=== PATIENT | female | born 1980 | race Caucasian/White ===

== ENCOUNTER 2019-12-15 18:03 | Emergency (ER) | payer BC ==
--- NOTE | 2019-12-15 19:00 | EDM.PDOC ---
ED HPI GENERAL MEDICAL PROBLEM - General Chief Complaint: Respiratory Problem Stated Complaint: CHEST PAIN/COUGH Time Seen by Provider: 12/15/19 18:42 Source of Information: Reports: Patient History Limitations: Reports: No Limitations - History of Present Illness INITIAL COMMENTS - FREE TEXT/NARRATIVE: Patient is a 38-year-old female who presents with complaints of a nonproductive cough, fever, body aches, nasal congestion. She complains of chest tightness and discomfort with deep breathing. States it is painful to cough. She also complains of intermittent bilateral ear pain she was diagnosed with pneumonia at the walk-in clinic on November 28. She was treated with azithromycin and Augmentin which she completed the course of approximately 1 week ago. States the symptoms did improve, however she did have a recurrence of cough 2 to 3 days ago. Fever, body aches, and chills developed today. States that a fever at home this morning was 102.0. She is currently afebrile in the emergency department. She did have an influenza vaccination this year. Treatments PUBLIC HEALTH ENGINEER: Reports: Acetaminophen, Other (see below) Other Treatments PUBLIC HEALTH ENGINEER: dayquil Generalized Pain Score (Numeric/FACES): 6 - Related Data Allergies Allergy/AdvReac Type Severity Reaction Status Date / Time erythromycin base Allergy Hives Verified 12/15/19 18:26 Home Meds: Home Meds Albuterol [Ventolin HFA] 2 puff .XX Q4H PRN #1 inhaler 12/15/19 [Rx] Codeine/Promethazine [Phenergan with Codeine] 5 ml PO Q4HR PRN #100 ml 12/15/19 [Rx] Doxycycline [Vibramycin] 100 mg PO BID #20 tab 12/15/19 [Rx] Fluticasone Propionate [Flonase Allergy Relief] 1 applicful NASBOTH DAILY [History] PARoxetine [Paxil] 20 mg PO DAILY 12/15/19 [History] Past Medical History Respiratory History: Reports: Asthma Other Gastrointestinal History: spleenectomy 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 ED EXAM, GENERAL - Physical Exam Exam: See Below Exam Limited By: No Limitations General Appearance: Alert, WD/WN, No Apparent Distress Ears: Normal External Exam, Normal Canal, Hearing Grossly Normal, Normal TMs Throat/Mouth: Normal Inspection, Normal Lips, Normal Teeth, Normal Gums, Normal Oropharynx, Normal Voice, No Airway Compromise Neck: Normal Inspection, Supple, Non-Tender, Full Range of Motion Respiratory/Chest: No Respiratory Distress, Lungs Clear, Normal Breath Sounds, No Accessory Muscle Use, Chest Non-Tender. No: Respiratory Distress, Decreased Breath Sounds, Crackles, Rhonchi, Wheezing, Accessory Muscle Use Cardiovascular: Normal Peripheral Pulses, Regular Rate, Rhythm, No Edema, No Gallop, No JVD, No Murmur, No Rub Neurological: Alert, Oriented, CN II-XII Intact, Normal Cognition, Normal Gait, Normal Reflexes, No Motor/Sensory Deficits Psychiatric: Normal Affect, Normal Mood Skin Exam: Warm, Dry, Intact, Normal Color, No Rash Course - Vital Signs Last Recorded V/S: Last Vital Signs Temp 99.8 F 12/15/19 20:37 Pulse 106 H 12/15/19 20:37 Resp 18 12/15/19 20:37 BP 129/92 H 12/15/19 20:37 Pulse Ox 99 12/15/19 20:37 - Orders/Labs/Meds Orders: Active Orders 24 hr Category Date Time Status RT Aerosol Therapy [RC] ASDIRECTED Care 12/15/19 19:38 Active Chest 2V [CR] Stat Exams 12/15/19 18:59 Taken Isolation [COMM] Routine Oth 12/15/19 19:00 Ordered Meds: Medications Discontinued Medications Generic Name Dose Route Start Last Admin Trade Name Freq PRN Reason Stop Dose Admin Albuterol/Ipratropium 3 ml 12/15/19 19:37 12/15/19 19:55 Duoneb 3.0-0.5 Mg/3 Ml NEB 12/15/19 19:38 3 ml ONETIME ONE Administration Ibuprofen 600 mg 12/15/19 19:37 12/15/19 19:42 Motrin PO 12/15/19 19:38 600 mg ONETIME ONE Administration - Re-Assessments/Exams Free Text/Narrative Re-Assessment/Exam: I have ordered a two-view chest x-ray as well as influenza screen. Influenza screen was negative. Chest x-ray does show a infiltrate in the right middle lobe. Patient is unsure which side her pneumonia was on previously. We did attempt to contact [facility] to have the images pushed to us, however they were unable to locate the chest x-ray. Based on patient's symptoms and the chest x- ray, we will treat this as an pneumonia. She is already had a course of azithromycin and Augmentin, therefore will treat with doxycycline twice daily for 10 days. She did verbalize relief of the chest tightness with a DuoNeb treatment. I will prescribe a albuterol inhaler to be used as needed for shortness of breath. I will also send a prescription for Phenergan with codeine for cough. Discharge instructions as documented. Departure - Departure Time of Disposition: 20:18 Disposition: Home, Self-Care 01 Condition: Fair Clinical Impression: Pneumonia Qualifiers: Pneumonia type: due to unspecified organism Laterality: right Lung location: middle lobe of lung Qualified Code(s): J18.9 - Pneumonia, unspecified organism - Discharge Information *PRESCRIPTION DRUG MONITORING PROGRAM REVIEWED*: No *COPY OF PRESCRIPTION DRUG MONITORING REPORT IN PATIENT ELIZABETH: No Prescriptions: Codeine/Promethazine [Phenergan with Codeine] 5 ml PO Q4HR PRN #100 ml PRN Reason: Cough Albuterol [Ventolin HFA] 2 puff .XX Q4H PRN #1 inhaler PRN Reason: Shortness Of Breath Doxycycline [Vibramycin] 100 mg PO BID #20 tab Instructions: Community-Acquired Pneumonia, Adult Referrals: Maggie Camilo MD [Primary Care Provider] - Forms: ED Department Discharge Additional Instructions: You were seen in the emergency department today with complaints of cough, fever , body aches, and headache. Your work-up included a chest x-ray, as well as an influenza swab. Your chest x-ray did show a right middle lobe pneumonia. A prescription for doxycycline, an albuterol inhaler, and Phenergan with codeine cough syrup has been sent to [place] [facility]. Take these medications as prescribed. Recommend that you take [id number] Tylenol or ibuprofen as needed for any fever or discomfort. Continue to monitor your symptoms, if you should experience any new or worsening symptoms or fail to improve over the course of the next few days as expected, we would recommend that you follow-up with your primary care provider or return to the ER as needed. Sepsis Event Note - Evaluation Sepsis Screening Result: Possible Sepsis Risk - Focused Exam Vital Signs: Vital Signs Temp Pulse Resp BP Pulse Ox Pulse Ox 12/15/19 20:37 99.8 F 106 H 18 129/92 H 99 12/15/19 19:58 97 12/15/19 18:15 98.8 F 99 124/86 96 Date Exam was Performed: 12/15/19 Time Exam was Performed: 22:24 - My Orders Last 24 Hours: My Active Orders 12/15/19 18:59 Chest 2V [CR] Stat 12/15/19 19:00 Isolation [COMM] Routine 12/15/19 19:38 RT Aerosol Therapy [RC] ASDIRECTED - Assessment/Plan Last 24 Hours: My Active Orders 12/15/19 18:59 Chest 2V [CR] Stat 12/15/19 19:00 Isolation [COMM] Routine 12/15/19 19:38 RT Aerosol Therapy [RC] ASDIRECTED
[2019-12-15] MEDS ORDERED: Ibuprofen 600 MG Tab PO ONE (19:37)
[2019-12-15] MEDS ORDERED: Albuterol/Ipratropium 3.0-0.5 MG/3 ML Neb Soln NEB ONE (19:37)
--- NOTE | 2019-12-16 14:05 | CR ---
Chest: 2 views of the chest were obtained. Comparison: No prior chest x-ray. Heart size and mediastinum are within normal limits. No acute parenchymal change is appreciated. Minimal scoliosis is noted within the spine. No acute bony abnormality is appreciated. Impression: 1. Nothing acute is appreciated on 2 view chest x-ray. Diagnostic code #2 This report was dictated in MDT
== END 2019-12-15 20:36 | disposition home or self-care (01) ==
LOC: JD.ED 18:03
DX: J18.9 Pneumonia, unspecified organism (principal); J45.909 Unspecified asthma, uncomplicated; Z88.1 Allergy status to other antibiotic agents; Z79.899 Other long term (current) drug therapy
CPT/HCPCS: 71046; 87804; 94640; 99285; A9270; J7620-GY

== ENCOUNTER 2021-02-11 09:18 | Emergency (ER) | payer BC ==
--- NOTE | 2021-02-11 10:01 | EDM.PDOC ---
ED HPI GENERAL MEDICAL PROBLEM - General Chief Complaint: Lower Extremity Injury/Pain Stated Complaint: LEFT FOOT PAIN Time Seen by Provider: 02/11/21 09:35 Source of Information: Reports: Patient History Limitations: Reports: No Limitations - History of Present Illness INITIAL COMMENTS - FREE TEXT/NARRATIVE: 40-year-old female presents the emergency department today with complaints of left foot pain and burning status post discectomy in [place] by Dr. Hdz on January 02, 2021. She states immediately after the surgery she developed left foot pain which has progressively gotten worse. She states that Dr. Johnson is aware of this pain and she did follow-up with him about 2 weeks ago. He told her she was needing to have an MRI however she is waiting on insurance approval for this. She states she has been calling him daily as he needs to speak with the insurance company. Apparently this has not been authorized yet. She does have Percocet at home which she states does help with the pain however she does not want to take any pain medication. Presents the ER today in obvious pain and crying. Denies any recent fever, chills, nausea, vomiting or diarrhea. Denies any dizziness, blurred vision, double vision or headache. 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 ED EXAM, GENERAL - Physical Exam Exam: See Below Exam Limited By: No Limitations General Appearance: Alert, WD/WN, No Apparent Distress Ears: Normal External Exam, Hearing Grossly Normal Nose: Normal Inspection Throat/Mouth: Normal Inspection, Normal Lips, Normal Voice, No Airway Compromise Head: Atraumatic, Normocephalic Neck: Normal Inspection Respiratory/Chest: No Respiratory Distress, No Accessory Muscle Use Cardiovascular: Normal Peripheral Pulses, Regular Rate, Rhythm Peripheral Pulses: 2+: Radial (L), Radial (R) GI/Abdominal: No Distention (Female) Exam: Deferred Rectal (Female) Exam: Deferred Back Exam: Normal Inspection Extremities: Normal Inspection, Normal Range of Motion. No: Non-Tender (Shearing burning pain noted to left foot at rest and with any palpation.) Neurological: Alert, Oriented, Normal Cognition Psychiatric: Anxious, Tearful Skin Exam: Warm, Dry, Intact, Normal Color, No Rash Lymphatic: No Adenopathy Course - Vital Signs Text/Narrative:: Patient presents with left foot pain and burning status post discectomy on January [id number]. She reports that immediately after surgery she developed left foot pain, however this is progressively gotten worse with pain and burning. Patient states it is painful to touch as she will not even let me attempt to palpate pedal pulses. Patient is able to wiggle her digits, CMS is positive and she has good range of motion noted however she states the pain is severe. She did see her neurologist about 2 weeks ago and he was made aware of this pain however he states that she will need to have an MRI and she is waiting on her insurance to authorize this. She states she did take a Percocet yesterday and this did give her some pain relief however she does not want to rely on pain medications. She is requesting to have an MRI today. I did phone the MRI department and there is no appointments available today, and the next available appointment is February [id number]. After discussion, the patient has elected to be discharged from the emergency department and she states she is likely just going to go to the emergency department in [place]. Last Recorded V/S: Last Vital Signs Temp 97.3 F 02/11/21 09:24 Pulse 106 H 02/11/21 09:24 Resp 16 02/11/21 09:24 BP 133/86 02/11/21 09:31 Pulse Ox 97 02/11/21 09:24 Departure - Departure Time of Disposition: 10:01 Disposition: Home, Self-Care 01 Condition: Good Clinical Impression: Left foot pain - Discharge Information Instructions: Pain Medicine Instructions, [id number] Referrals: Maggie Camilo DIRECT MARKETING REPRESENTATIVE [Primary Care Provider] - Forms: ED Department Discharge Additional Instructions: You were seen in the ED today with complaints of left foot pain after having back surgery. You requested to have a MRI however there is no spots available today. Next available MRI appointment is February 17, 2021. Follow up with your Neurosurgeon, Dr. Hdz. Sepsis Event Note (ED) - Evaluation Sepsis Screening Result: No Definite Risk - Focused Exam Vital Signs: Vital Signs Temp Pulse Resp BP Pulse Ox 02/11/21 09:31 133/86 02/11/21 09:24 97.3 F 106 H 16 142/131 H 97
== END 2021-02-11 10:05 | disposition home or self-care (01) ==
LOC: JD.ED 09:18
DX: M79.672 Pain in left foot (principal); J45.909 Unspecified asthma, uncomplicated; Z87.891 Personal history of nicotine dependence; Z79.899 Other long term (current) drug therapy; Z88.1 Allergy status to other antibiotic agents
CPT/HCPCS: 99282; 99283

== ENCOUNTER 2021-02-11 15:09 | Emergency (ER) | payer BC ==
[2021-02-11] MEDS ORDERED: HYDROmorphone 1 MG/ML Syringe IM ONE (16:25)
--- NOTE | 2021-02-11 17:03 | EDM.PDOC ---
ED HPI GENERAL MEDICAL PROBLEM - General Chief Complaint: Lower Extremity Injury/Pain Stated Complaint: LEFT FOOT PAIN Time Seen by Provider: 02/11/21 16:18 Source of Information: Reports: Patient, RN Notes Reviewed History Limitations: Reports: No Limitations - History of Present Illness INITIAL COMMENTS - FREE TEXT/NARRATIVE: Patient is a 40-year-old female who presents to the ER for the evaluation of left-sided foot/leg pain. Patient recently had back surgery performed by Dr. Hdz in [facility]. Patient has been having excruciating pain to her left leg, she was seen in this ER earlier this morning, but left without her discharge paperwork, she states that she has taken her Percocet at home, 2 tablets at around 10 AM, another tablet at around noon, and 2 more at 2 PM. She notes that nothing seems to be helping much. Uses her oxycodone 5/325 mg. She states there is a fire-like pain running down from her left lower back, to the lateral portion of her left thigh, that wraps to the front of her knee, down into her toes. Patient notes she is awaiting insurance approval for MRI. Notes she has been placed on gabapentin in the past with no relief as well as steroids with no relief. No worsening neurological symptoms like urinary incontinence or fecal incontinence, or any sort of saddle anesthesia. Patient denies any other sick-like symptoms, fever/chills, cough/shortness of breath, nausea/vomiting/diarrhea. Treatments OPTIC FIBRE DRAWER: Reports: Other (see below) Other Treatments OPTIC FIBRE DRAWER: oxycodone Left Feet Pain Score (Numeric/FACES): 10 - Related Data Allergies Allergy/AdvReac Type Severity Reaction Status Date / Time erythromycin base Allergy Hives Verified 02/11/21 09:48 Home Meds: Home Meds Albuterol [Ventolin HFA] 2 puff .XX Q4H PRN #1 inhaler 12/15/19 [Rx] Fluticasone Propionate [Flonase Allergy Relief] 1 applicful NASBOTH DAILY 12/15/19 [History] PARoxetine [Paxil] 20 mg PO DAILY 12/15/19 [History] Diclofenac Sodium [Voltaren 1% Gel] 1 applic TOP BID PRN #1 tube 02/11/21 [Rx] Pregabalin 75 mg PO BID #70 capsule 02/11/21 [Rx] oxyCODONE HCl/Acetaminophen [Oxycodone-Acetaminophen 5-325] 1 tab PO ASDIRECTED PRN 02/11/21 [History] Past Medical History Respiratory History: Reports: Asthma Other Gastrointestinal History: spleenectomy 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 Hdz) Other Musculoskeletal Surgeries/Procedures:: discectomy 01/2021 in [place] Social & Family History - Family History Family Medical History: No Pertinent Family History - Tobacco Use Tobacco Use Status *Q: Never Tobacco User Second Hand Smoke Exposure: No - Caffeine Use Caffeine Use: Reports: None - Alcohol Use Days Per Week of Alcohol Use: 7 Number of Drinks Per Day: 1 Total Drinks Per Week: 7 - Recreational Drug Use Recreational Drug Use: No Review of Systems - Review of Systems Review Of Systems: Comprehensive ROS is negative, except as noted in HPI. ED EXAM, GENERAL - Physical Exam Exam: See Below Exam Limited By: No Limitations General Appearance: Alert, WD/WN, No Apparent Distress Respiratory/Chest: No Respiratory Distress, Lungs Clear, Normal Breath Sounds, No Accessory Muscle Use, Chest Non-Tender Cardiovascular: Normal Peripheral Pulses, Regular Rate, Rhythm, No Edema Peripheral Pulses: 2+: Dorsalis Pedis (L), Dorsalis Pedis (R) Extremities: Normal Inspection, Limited Range of Motion (of left leg d/t pain, states that her leg feels like it's on fire.) Neurological: Alert, Oriented, Normal Cognition, No Motor/Sensory Deficits Psychiatric: Normal Affect, Normal Mood Skin Exam: Warm, Dry, Intact, Normal Color, No Rash Course - Vital Signs Last Recorded V/S: Last Vital Signs Temp 97.3 F 02/11/21 15:23 Pulse 88 02/11/21 15:23 Resp 14 02/11/21 15:23 BP 122/80 02/11/21 15:23 Pulse Ox 98 02/11/21 15:23 - Orders/Labs/Meds Meds: Medications Discontinued Medications Generic Name Dose Route Start Last Admin Trade Name Freq PRN Reason Stop Dose Admin Hydromorphone HCl 1 mg 02/11/21 16:25 02/11/21 16:37 Hydromorphone 1 Mg/Ml Syringe IM 02/11/21 16:26 1 mg ONETIME ONE Administration Hydromorphone HCl 0.5 mg 02/11/21 17:32 Hydromorphone 0.5 Mg/0.5 Ml Syringe IM 02/11/21 17:33 ONETIME ONE - Re-Assessments/Exams Free Text/Narrative Re-Assessment/Exam: 02/11/21 17:08 Patient presents to the ER for her left foot pain. We will go ahead and give her 1 mg IM Dilaudid for beginning pain management, my goal was to try to get her home on something like gabapentin but she states she is taking this in the past and has not provided her much pain relief. Departure - Departure Time of Disposition: 17:35 Disposition: Home, Self-Care 01 Condition: Good Clinical Impression: Neuropathic pain of left foot - Discharge Information *PRESCRIPTION DRUG MONITORING PROGRAM REVIEWED*: Yes *COPY OF PRESCRIPTION DRUG MONITORING REPORT IN PATIENT ELIZABETH: No Prescriptions: Pregabalin 75 mg PO BID #70 capsule Diclofenac Sodium [Voltaren 1% Gel] 1 applic TOP BID PRN #1 tube PRN Reason: Pain Instructions: Neuropathic Pain Referrals: Maggie Camilo SCREEN MAKING SUPERVISOR [Primary Care Provider] - Forms: ED Department Discharge Additional Instructions: You were seen in this ER for your left sided foot pain. This is most likely due to neuropathic pain, you were given some IM pain medication in the ER, this seemed to help relieve some of the pain. You have been given a few different medications, to hopefully get on top of the neuropathic pain. 1 is for pregabalin, you will need to take 75 mg or 1 tablet twice daily for the first week, and then you may increase to 2 tablets twice daily until gone. Please note this medication can take up to a week to start providing her benefit. You should continue to take your oxycodone tablets as directed, but please try to not take them directly at the same time you are taking the pregabalin, as this might cause adverse effects like increased sedation. Recommend you start taking stool softeners if you are having to continually take Percocet to provide pain relief, as the Percocet or oxycodone can cause constipation. You were also given a prescription for Voltaren, a topical pain reliever, you may use liberally to the foot and lower leg, 2 times a day for ongoing management. These medications were electronically sent to the [place] pharmacy located in the [employer]. If the pregabalin seems to help provide you pain relief, recommend you call your neurosurgeon and discuss this with him for refill, until you can get definitive management, and or your MRI obtained. Please return to the ER at any time if symptoms change or worsen Sepsis Event Note (ED) - Evaluation Sepsis Screening Result: No Definite Risk - Focused Exam Vital Signs: Vital Signs Temp Pulse Resp BP Pulse Ox 02/11/21 15:23 97.3 F 88 14 122/80 98
[2021-02-11] MEDS ORDERED: HYDROmorphone 0.5 MG/0.5 ML Syringe IM ONE (17:32)
== END 2021-02-11 17:48 | disposition home or self-care (01) ==
LOC: JD.ED 15:09
DX: G62.9 Polyneuropathy, unspecified (principal); J45.909 Unspecified asthma, uncomplicated; Z79.899 Other long term (current) drug therapy; Z88.1 Allergy status to other antibiotic agents
CPT/HCPCS: 96372; 99283; J1170